=== PATIENT | female | born 1990 | race Caucasian/White ===

== ENCOUNTER 2018-06-09 15:12 | Outpatient (CLI) | payer MEDICAID ==
[~2018-06-09] VITALS: Ht 160 cm; Wt 68.2 kg
[2018-06-09] MEDS ORDERED: PREN1TAB60 PO (15:36)
[2018-06-09] MEDS ORDERED: IRON1TAB60 PO (15:37)
[2018-06-09] MEDS ORDERED: ONDANSETRON ODT 4 MG ONE (15:56)
[2018-06-09 15:57] VITALS: BP 115/73
[2018-06-09] MEDS ORDERED: ONDANSETRON ODT 4 MG PO ONE (16:00)
[2018-06-09 16:07] LABS: MICROSCOPIC NOT IND
== END 2018-06-09 16:50 | disposition home or self-care (01) ==
LOC: LDOP 15:12
PROVIDERS: ATTEND Obstetrics & Gynecology
DX: O26.893 Other specified pregnancy related conditions, third trimester (principal); R19.7 Diarrhea, unspecified; O21.8 Other vomiting complicating pregnancy; O26.813 Pregnancy related exhaustion and fatigue, third trimester; Z3A.37 37 weeks gestation of pregnancy
CPT/HCPCS: 59025; 81003; 87086; 99201; Q0162; G0463

== ENCOUNTER 2018-07-01 08:48 | Inpatient (IN) | payer MEDICAID ==
[~2018-07-01] VITALS: Ht 160 cm; Wt 70.9 kg
[~2018-07-01 08:48] MED LIST: IRON1TAB60 PO; PREN1TAB60 PO
[2018-07-10 17:00] VITALS: BP 110/71
[2018-07-10] MEDS ORDERED: LIDOCAINE 1%, 20ML ONE (18:12)
[2018-07-10] MEDS ORDERED: NEWBORN KIT ONE (18:12)
[2018-07-10] MEDS ORDERED: MISOPROSTOL 200 MCG TABLET ONE (18:12)
[2018-07-10] MEDS ORDERED: OXYTOCIN 30U/ 0.9% NaCL 500ML 500 ML ONE (18:12)
[2018-07-10] MEDS ORDERED: FENTANYL PF 100 MCG/2ML ONE (18:58)
[2018-07-10] MEDS ORDERED: OXYTOCIN 30U/ 0.9% NaCL 500ML 500 ML IV ONE (19:07)
[2018-07-10] MEDS ORDERED: D5%-LACTATED RINGERS 1,000 ML IV SCH (19:07)
[2018-07-10] MEDS: FENTANYL PF 100 MCG/2ML IV PRN (19:11)
[2018-07-10] MEDS ORDERED: FENTANYL PF 100 MCG/2ML IVPush PRN (19:30)
[2018-07-10] MEDS ORDERED: ONDANSETRON 2MG/ML, 2ML IVPush PRN (19:30)
[2018-07-10 19:31] LABS: BASOPHILS # (AUTO) 0.03 x10^3/uL (0-0.1); BASOPHILS % (AUTO) 0 % (0-1); EOSINOPHILS # (AUTO) 0.15 x10^3/uL (0-0.4); EOSINOPHILS % (AUTO) 2 % (1-7); LYMPHOCYTES # (AUTO) 2.06 x10^3/uL (1-3.4); LYMPHOCYTES % (AUTO) 24 % (22-44); MD NO; MEAN CORPUSCULAR HEMOGLOBIN 32.6 pg (27.0-34.8); MEAN CORPUSCULAR HGB CONC 34.2 g/dL (32.4-35.8); MEAN CORPUSCULAR VOLUME 95.3 fL (80-100); MEAN PLATELET VOLUME 6.8 fL (7.4-10.4); MONOCYTES # (AUTO) 0.51 x10^3/uL (0.2-0.8); MONOCYTES % (AUTO) 6 % (2-9); NEUTROPHILS # (AUTO) 5.84 x10^3/uL (1.8-6.8); NEUTROPHILS % (AUTO) 68 % (42-75); PLATELET COUNT 280 x10^3/uL (130-400); RED BLOOD COUNT 3.94 x10^6/uL (3.82-5.3)
[2018-07-10] MEDS ORDERED: CALCIUM CARBONATE 500 MG TAB.CHEW ONE (21:34)
[2018-07-11] MEDS: FENTANYL PF 100 MCG/2ML IV PRN (04:13)
[2018-07-11] MEDS: LACTATED RINGERS 1,000 ML IV SCH ×5 (06:37→22:47)
[2018-07-11] MEDS ORDERED: FENTANYL/BUPIV./NS/PF 250 ML EPIDCONT SCH ×2 (09:24→13:08)
[2018-07-11] MEDS ORDERED: FENTANYL PF 500 MCG, BUPIVACAINE/PF 0.5%, 30ML 62.5 ML in SODIUM CHLORIDE 0.9% 177.5 ML EPIDCONT SCH ×2 (10:00→13:30)
[2018-07-11] MEDS ORDERED: FENTANYL PF 100 MCG/2ML ONE ×2 (10:02→21:31)
[2018-07-11] MEDS ORDERED: BUPIVACAINE 0.25% ONE ×3 (12:46→20:51)
[2018-07-11] MEDS ORDERED: LACTATED RINGERS 1,000 ML IV SCH (13:08)
[2018-07-11] MEDS ORDERED: EPHEDRINE 50 MG/ML, 1ML IVPush PRN (13:30)
[2018-07-11] MEDS ORDERED: LACTATED RINGERS 1,000 ML IVBOLUS PRN (13:30)
[2018-07-11] MEDS ORDERED: CALCIUM CARBONATE 500 MG TAB.CHEW PO PRN (14:30)
[2018-07-11] MEDS ORDERED: CALCIUM CARBONATE 500 MG TAB.CHEW ONE ×2 (14:39→17:53)
[2018-07-11] MEDS ORDERED: ONDANSETRON 2MG/ML, 2ML ONE ×2 (19:18→21:30)
[2018-07-11] MEDS ORDERED: TERBUTALINE 1 MG/ML, 1ML ONE (19:18)
[2018-07-11] MEDS ORDERED: METOCLOPRAMIDE 5 MG/ML, 2ML ONE (21:25)
[2018-07-11] MEDS ORDERED: SODIUM CITRATE/CITRIC ACID 30 ML UDC ONE (21:25)
[2018-07-11] MEDS ORDERED: CEFAZOLIN 1,000 MG ONE ×2 (21:30→21:36)
[2018-07-11] MEDS ORDERED: OXYTOCIN 10 UNITS/ML, 1ML ONE (21:30)
[2018-07-11] MEDS ORDERED: HYDROmorphone 2 MG/ML, 1ML ONE (21:31)
[2018-07-11] MEDS ORDERED: SODIUM CHLORIDE 0.9% PF 10ML ONE ×2 (21:31)
[2018-07-11] MEDS ORDERED: LIDOCAINE-MPF 2% ,5ML ONE ×2 (21:38)
[2018-07-11] MEDS ORDERED: MISOPROSTOL 200 MCG TABLET PR PRN (22:30)
[2018-07-11] MEDS ORDERED: OXYcodone/APAP 5/325MG TABLET PO PRN (22:30)
[2018-07-11] MEDS ORDERED: morphine SULFATE 10 MG/ML, 1ML IVPush PRN (22:30)
[2018-07-11] MEDS ORDERED: ONDANSETRON 2MG/ML, 2ML IV PRN (22:30)
[2018-07-11] MEDS: OXYTOCIN 30U/ 0.9% NaCL 500ML 500 ML IV SCH (22:47)
[2018-07-11] MEDS ORDERED: ACETAMINOPHEN 325 MG TABLET ONE (22:48)
[2018-07-11] MEDS ORDERED: KETOROLAC 30 MG/1 ML ONE (22:53)
[2018-07-11] MEDS ORDERED: ACETAMINOPHEN 325 MG TABLET PO ONE (23:00)
[2018-07-11] MEDS: KETOROLAC 30 MG/1 ML IV PRN (23:04)
[2018-07-11] MEDS ORDERED: OXYcodone IR 5MG TABLET ONE (23:23)
[2018-07-11] MEDS: OXYcodone IR 5MG TABLET PO PRN (23:26)
[2018-07-12 00:25] VITALS: BP 97/56
[2018-07-12] MEDS: OXYcodone IR 5MG TABLET PO PRN ×6 (03:26→23:58)
[2018-07-12 03:45] VITALS: BP 98/58
[2018-07-12] MEDS: KETOROLAC 30 MG/1 ML IV PRN ×3 (05:03→16:55)
[2018-07-12 06:12] LABS: MEAN CORPUSCULAR HEMOGLOBIN 32.4 pg (27.0-34.8); MEAN CORPUSCULAR HGB CONC 33.5 g/dL (32.4-35.8); MEAN CORPUSCULAR VOLUME 96.7 fL (80-100); MEAN PLATELET VOLUME 6.9 fL (7.4-10.4); PLATELET COUNT 199 x10^3/uL (130-400); RED BLOOD COUNT 3.53 x10^6/uL (3.82-5.3); RED CELL DISTRIBUTION WIDTH 13.9 % (9.6-15.2)
[2018-07-12] MEDS: LACTATED RINGERS 1,000 ML IV SCH ×5 (06:17→22:17)
[2018-07-12 06:30] LABS: MD YES
[2018-07-12 06:31] LABS: BAND#(MANUAL) 1.41 x10^3/uL; BANDS%(MANUAL) 10 % (0-7); LYMPH#(MANUAL) 1.41 x10^3/uL (1-3.4); LYMPHS% (MANUAL) 10 % (22-44); MONOS#(MANUAL) 0.56 x10^3/uL (0.3-2.7); MONOS% (MANUAL) 4 % (2-9); SEG#(MANUAL) 10.72 x10^3/uL (1.8-6.8); SEGS% (MANUAL) 76 % (42-75)
[2018-07-12 06:32] LABS: <PLATELET ESTIMATE> ADEQUATE; <PLT MORPHOLOGY> NORMAL PLT MORPH; <RBC MORPHOLOGY> NORMAL
[2018-07-12] MEDS ORDERED: CALCIUM CARBONATE 500 MG TAB.CHEW PO PRN (07:30)
[2018-07-12 08:00] VITALS: BP 108/75
[2018-07-12] MEDS: PRENATAL VIT/IRON/FA 1 EACH TABLET PO SCH (08:07)
[2018-07-12] MEDS: DOCUSATE 100 MG CAPSULE PO PRN ×2 (08:07→19:38)
[2018-07-12] MEDS: OXYTOCIN 30U/ 0.9% NaCL 500ML 500 ML IV SCH ×2 (08:17→18:17)
[2018-07-12 12:04] VITALS: BP 112/75
[2018-07-12] MEDS ORDERED: SIMETHICONE 80 MG CHEW TAB ONE (14:53)
[2018-07-12] MEDS ORDERED: SIMETHICONE 80 MG CHEW TAB PO PRN (15:00)
[2018-07-12 16:00] VITALS: BP 102/64
[2018-07-12 19:30] VITALS: BP 107/71
[2018-07-12] MEDS: IBUPROFEN 600 MG TABLET PO PRN (23:59)
[2018-07-13] MEDS: LACTATED RINGERS 1,000 ML IV SCH ×5 (04:17→22:17)
[2018-07-13] MEDS: OXYTOCIN 30U/ 0.9% NaCL 500ML 500 ML IV SCH ×2 (04:17→14:17)
[2018-07-13] MEDS: OXYcodone IR 5MG TABLET PO PRN ×4 (05:49→20:37)
[2018-07-13] MEDS: IBUPROFEN 600 MG TABLET PO PRN ×3 (05:49→20:37)
[2018-07-13] MEDS: DOCUSATE 100 MG CAPSULE PO PRN ×2 (10:17→20:37)
[2018-07-13] MEDS: PRENATAL VIT/IRON/FA 1 EACH TABLET PO SCH (10:17)
[2018-07-13 19:45] VITALS: BP 114/75
[2018-07-14] MEDS: LACTATED RINGERS 1,000 ML IV SCH ×3 (00:17→10:17)
[2018-07-14] MEDS: OXYTOCIN 30U/ 0.9% NaCL 500ML 500 ML IV SCH ×2 (00:17→10:17)
[2018-07-14] MEDS: IBUPROFEN 600 MG TABLET PO PRN (04:09)
[2018-07-14] MEDS: OXYcodone IR 5MG TABLET PO PRN ×2 (04:09→08:03)
[2018-07-14] MEDS: DOCUSATE 100 MG CAPSULE PO PRN (08:03)
[2018-07-14] MEDS: PRENATAL VIT/IRON/FA 1 EACH TABLET PO SCH (08:03)
[2018-07-14] MEDS ORDERED: OXYC-302 PO (08:38)
[2018-07-14] MEDS ORDERED: IBUP-1222 PO (08:38)
== END 2018-07-14 11:25 | disposition home or self-care (01) | DRG 787 ==
LOC: LDIP 07-10 16:23 → 2NW 07-11 23:57
PROVIDERS: ADMIT Obstetrics & Gynecology; ATTEND Obstetrics & Gynecology
PROC: 0U7C7ZZ Dilation of Cervix, Via Natural or Artificial Opening (ICD-10-PCS; 2018-07-10)
PROC: 10D00Z1 Extraction of Products of Conception, Low, Open Approach (ICD-10-PCS; principal; 2018-07-11)
DX: O34.211 Maternal care for low transverse scar from previous cesarean delivery (principal); E87.2 Acidosis; O76 Abnormality in fetal heart rate and rhythm complicating labor and delivery; O77.0 Labor and delivery complicated by meconium in amniotic fluid; O75.89 Other specified complications of labor and delivery; Z37.0 Single live birth; Z83.3 Family history of diabetes mellitus; Z3A.41 41 weeks gestation of pregnancy
CPT/HCPCS: 36415; J7121; 82803; 85025; 86850; 86900; G0378; J0690; J1170; J1885; J2405; J3010; J3490; J2590; J7050; J7120